=== PATIENT | female | born 2005 | race Caucasian/White ===

== ENCOUNTER 2024-02-08 16:25 | Emergency (ER) | payer MEDICAID, SELFPAY ==
[2024-02-08 16:26] VITALS: BMI 24.0
[2024-02-08 16:42] VITALS: BP 136/74; PULSE 87; RESP 16; TEMP 36.9; O2SAT 100
--- NOTE | 2024-02-08 16:54 | PD.EDRME ---
Rapid Medical Screening Exam RME Arrival date/time: 02/08/24 16:25 Chief Complaint: Urogenital-Female Time Seen by Provider: 02/08/24 16:29 Vital signs: Vital Signs Temperature 98.4 F 02/08/24 16:42 Pulse Rate 87 02/08/24 16:42 Respiratory Rate 16 02/08/24 16:42 Blood Pressure 136/74 H 02/08/24 16:42 Pulse Oximetry (%) 100 02/08/24 16:42 Oxygen Delivery Method Room Air 02/08/24 16:42 RME Narrative: Vaginal spotting x 1 month. Denies
--- NOTE | 2024-02-08 16:55 | XR_ITS ---
Examination: Pelvic ultrasound, transabdominal, complete Technique: Transabdominal ultrasound of the pelvis performed using grayscale imaging Date and time of exam: February 08, 2024 1809 hours Indications: Pelvic cramping and vaginal bleeding beginning one month ago findings: Uterus 6.7 x 3.7 x 4.7 cm Free fluid in the cervix Free fluid in the cul-de-sac No uterine mass or intrauterine gestation Right ovary 3.3 x 2.0 x 2.2 cm arterial flow Left ovary 3.0 x 2.0 x 2.5 cm arterial flow Endometrial stripe 0.5 cm Impression: No uterine mass or intrauterine gestation
[2024-02-08 17:12] LABS: Basophils % (Auto) 1 % (0-2.5); Eosinophils # (Auto) 0.1 Thou/mm3 (0.0-0.5); Eosinophils % (Auto) 2 % (0-10); Hematocrit 40.6 % (36.0-46.0); Hemoglobin 13.9 g/dL (12.0-16.0); Immature Granulocytes % (Auto) 0 % (0-0); Lymphocytes # (Auto) 1.9 Thou/mm3 (1.0-4.8); Lymphocytes % (Auto) 47 % (10-50); Mean Corpuscular HGB Conc 34.2 g/dl (31.0-37.0); Mean Corpuscular Hemoglobin 29.7 pg (25.0-35.0); Mean Corpuscular Volume 87 fL (80-100); Monocytes # (Auto) 0.5 Thou/mm3 (0.0-0.8); Monocytes % (Auto) 11 % (0-12); Neutrophils # (Auto) 1.6 Thou/mm3 (1.8-7.7); Neutrophils % (Auto) 40 % (37-80); Nucleated Red Blood Cell % 0 /100 WBC (0); Platelet Count 248 Thou/mm3 (140-440); RDW Standard Deviation 40.4 fL (36.4-46.3); Red Blood Count 4.68 Miln/mm3 (4.00-5.20); White Blood Count 4.1 Thou/mm3 (3.6-11.0)
[2024-02-08 17:30] LABS: Collection Type, Urine Clean Catch
[2024-02-08 17:36] LABS: Bilirubin,Urine Negative (Negative); Blood,Urine Trace (Negative); Clarity,Urine Clear (Clear/Hazy); Color,Urine Lt-Yellow (Lt Yel-Yel); Glucose, Urine Negative (Negative); Ketones,Urine Negative (Negative); Leukocyte Esterase,Urine Negative (Negative); Nitrite,Urine Negative (Negative); PH,Urine 7.5 (5.0-7.0); Protein,Urine Negative (Neg - Trace); RBC,Urine 3 /hpf (0-3); Specific Gravity,Urine 1.024 (1.001-1.035); Squamous Epithelial Cell,Urine 13 /hpf (0-5); Urobilinogen,Urine Negative mg/dL (0.0-1.0); WBC,Urine < 1 /hpf (0-5)
[2024-02-08 17:38] LABS: HCG Qualitative,Urine Negative
[2024-02-08 17:38] LABS: Alanine Aminotransferase 55 U/L (10-49); Albumin, Serum 5.2 gm/dL (3.5-5.0); Albumin/Globulin Ratio 2.2 (1.2-2.2); Alkaline Phosphatase 59 U/L (46-116); Anion Gap 7 (7-16); Aspartate Amino Transferase 82 U/L (0-34); BUN/Creatinine Ratio 12 Ratio (12-20); Bilirubin,Total 0.5 mg/dL (0.3-1.2); Blood Urea Nitrogen 12 mg/dL (9-23); Chloride 104 mMol/L (98-107); Estimated Creatinine Clearance 76.8 mL/min (>60); Globulin 2.4 gm/dL (2.3-3.5); Glucose 98 mg/dL (74-106); Osmolality,Calculated 275 (275-295); Potassium 4.1 mMol/L (3.4-5.1); Sodium 138 mMol/L (136-145); Total Protein 7.6 gm/dL (5.7-8.2); eGFR > 60 See Note
--- NOTE | 2024-02-08 21:48 | EDNOTE_ITS ---
<Statement entered by Di Woodward MD - 02/19/24 17:38> As co-signing physician, I was present and available for consult prn. I concur with the plan and care as documented by the midlevel provider. ED Female Urogenital RME/HPI General Chief complaint: Urogenital-Female Stated complaint: VAGINAL BLEEDING FOR 1 MONTH Time Seen by Provider: 02/08/24 16:29 Source: patient Arrival date/time: 02/08/24 16:25 19-year-old female presents emergency department complaining of vaginal spotting for 1 month. Patient denies any fever, chills, dysuria, flank pain, or any other associated symptom. Mode of arrival: ambulatory Limitations: no limitations RME / HPI RME / HPI Narrative: Vaginal spotting x 1 month. Denies Related Data Previous Rx's ?Medication ?Instructions ?Recorded ibuprofen 400 mg tablet 400 mg PO Q6H fever #30 tabs 05/30/20 Allergies Allergy/AdvReac Type Severity Reaction Status Date / Time No Known Allergies Allergy Verified 02/08/24 16:28 Review of Systems Review of Systems Systems Reviewed: All systems reviewed, normal except as documented Constitutional Constitutional: Reports system reviewed and no additional complaints, except as documented, Denies body ache(s), Denies chills and Denies fever(s) Eyes Eyes: Reports system reviewed and no additional complaints, except as documented and Denies change in vision ENT Ears, Nose, Mouth, and Throat: Reports system reviewed and no additional complaints, except as documented, Denies disequilibrium, Denies dizziness, Denies sore throat and Denies vertigo Cardiovascular Cardiovascular: Reports system reviewed and no additional complaints, except as documented, Denies chest pain and Denies dyspnea Respiratory Respiratory: Reports system reviewed and no additional complaints, except as documented, Denies chest congestion, Denies cough and Denies dyspnea Gastrointestinal Gastrointestinal: Reports system reviewed and no additional complaints, except as documented, Denies abdominal pain, Denies nausea and Denies vomiting Genitourinary Genitourinary: Reports abnormal vaginal bleeding Musculoskeletal Musculoskeletal: Reports system reviewed and no additional complaints, except as documented, Denies abnormal gait and Denies arthralgias Integumentary/Breasts Skin/Breast: Reports system reviewed and no additional complaints, except as documented, Denies erythema, Denies rash and Denies wounds Neurologic Neurologic: Reports system reviewed and no additional complaints, except as documented, Denies abnormal gait, Denies disequilibrium, Denies dizziness and Denies vertigo Past Medical History Social History SMOKING STATUS: Never smoker ED Exam General Limitations: Present no limitations General appearance: Present alert and in no apparent distress Head Head exam: Present atraumatic Eye Eye exam: Present normal appearance, PERRL and EOMI ENT ENT exam: Present normal exam, normal oropharynx and mucous membranes moist Neck Neck exam: Present normal inspection, full ROM and trachea midline Chest Chest inspection: Present normal inspection and symmetric chest wall rise Respiratory Respiratory exam: Present normal lung sounds bilaterally Cardiovascular Cardiovascular exam: Present regular rate, normal rhythm and normal heart sounds Abdominal Exam Abdominal exam: Present soft and normal bowel sounds; Absent tenderness, guardin g or rebound Extremities Exam Extremities exam: Present normal inspection and full ROM Back Exam Back exam: Present normal inspection and full ROM; Absent CVA tenderness (R) or CVA tenderness (L) Neurological Exam Neurological exam: Present alert, oriented X3 and CN II-XII intact Psychiatric Psychiatric exam: Present normal affect and normal mood Skin Skin exam: Present warm, dry, intact and normal color Course Quality Measures none Orders Category Date Time Status US pelvic complete Stat Exams 02/08/24 16:55 Completed CBC Stat Lab 02/08/24 17:04 Completed CMP [Comprehensive Metabolic Panel] Stat Lab 02/08/24 17:04 Completed HCG Qualitative,Urine Stat Lab 02/08/24 17:15 Completed UA [Urinalysis] Stat Lab 02/08/24 17:15 Completed Vital Signs Vital signs: Vital Signs Temperature 98.4 F 02/08/24 16:42 Pulse Rate 87 02/08/24 16:42 Respiratory Rate 16 02/08/24 16:42 Blood Pressure 136/74 H 02/08/24 16:42 Pulse Oximetry (%) 100 02/08/24 16:42 Oxygen Delivery Method Room Air 02/08/24 16:42 100% room air within normal limits Urogenital - Female MDM Narrative MDM Narrative:: 19-year-old female presents emergency department complaining of vaginal spotting for 1 month. Patient denies any fever, chills, dysuria, flank pain, or any other associated symptom. Patient's abdomen is soft and nontender. CBC was unremarkable for any leukocytosis or anemia. CMP and urinalysis were unremarkable. Pelvic ultrasound was also unremarkable. Patient appears nontoxic and is hemodynamically stable. Patient stable for discharge instructed to follow-up with primary care provider and get referral to [facility] for further evaluation of vaginal spotting. Instructed to return to emergency department for any worsening symptoms or as needed. Patient data External records reviewed:: [facility] previous records Clinical information provided by:: patient Social determinants that could affect healthcare access:: none Patient has the following chronic illnesses:: None How is presenting disease/condition affected by chronic disease/condition?: no chronic disease Evaluation data The following diagnostics were reviewed and interpreted by me:: lab results and radiology exam(s) Lab and/or radiology exams considered but not ordered:: Ordered Interpretation Summary: Interpreted by me Medications / Prescriptions Medications or Prescriptions considered but not ordered:: N/A Medication administrations:: N/A Consultations Consultation(s) initiated? (list below): No Diagnosis Urogenital Female Differential Diagnosis: urinary tract infection, bacterial vaginosis, trichomoniasis, cervicitis, ovarian cyst, vaginitis, cystitis and dysmenorrhea Most likely diagnosis given after review of the tests above:: Vaginal bleeding Admission Indicated Admission indicated?: not indicated Admission Request Was there a request for admission?: No Disposition Plan Disposition Plan: Discharge Discharge Attestation Discharge Attestation: The patient and all family members were given an opportunity to ask questions and understood the discharge instructions. Discharge instructions specifically effects, indications for sooner follow up or return to the emergency department, and the expected course of current diagnosis. Patient condition: Stable Discharge Plan Plan Patient Disposition: HOME (Self Care) Disposition Comment: Stable Prescriptions/Referrals Prescriptions/Med Rec: No Action ibuprofen 400 mg tablet 400 mg PO Q6H Qty: 30 0RF Referrals: Preeti Nelson PA-C [Primary Care Provider] - In 1 week Problem List Clinical Impression: Vaginal bleeding Patient/Caregiver Discharge Instructions Discharge Activity: activity as tolerated Education Materials: Understanding Uterine Bleeding Additional Instructions: Follow-up with primary care provider and request referral to [facility]. Return to the emergency department for any worsening symptoms or as needed. Print Language: Greek Stand Alone Forms: Sarah Award Info., Patient Portal Info Letter CHEO/LINDA Supervising Physician CHEO/LINDA Supervising Physician: Dr. Woodward
== END 2024-02-08 21:47 | disposition home or self-care (01) ==
PROVIDERS: Physician Assistant; Emergency Provider Emergency Medicine; PCP Physician Assistant Medical
DX: N93.9 Abnormal uterine and vaginal bleeding, unspecified (principal)
CPT/HCPCS: 36415; 76856; 80053; 81001; 81025; 85025; 99284

== ENCOUNTER 2024-12-23 16:20 | Emergency (ER) | payer MEDICAID, SELFPAY ==
[2024-12-23 16:21] VITALS: BMI 25.7
[2024-12-23 17:18] VITALS: BP 144/71; PULSE 91; RESP 20; TEMP 36.9; O2SAT 99
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
[2024-12-23] MEDS: LIDOCAINE 5% 1 PATCH TOP (18:11)
[2024-12-23] MEDS: KETOROLAC INJ 60 MG/2 ML VIAL IM (18:11)
== END 2024-12-23 18:43 | disposition home or self-care (01) ==
PROVIDERS: Emergency Provider Emergency Medicine
DX: S39.012A Strain of muscle, fascia and tendon of lower back, initial encounter (principal); X50.0XXA Overexertion from strenuous movement or load, initial encounter
CPT/HCPCS: 96372; 99282; J1885; J3490